=== PATIENT | male | born 1955 | race Two or more races ===

== ENCOUNTER → 2016-11-29 | Outpatient (REF) | payer OTHER ==
[~2016-11-29] MED LIST: /CELE20CA OR; ALLO15TA PO; CARD240C5 PO; DRIS50002 PO; FISH1000 OR; FLAX10005 PO; HYDR25TA6 OR; LIDO5DIS EX; LISI20TA5 OR; METO100T PO; OMEP20CA3 PO; OMEP20TA7 OR; PRAD150C PO; SIMV40TA2 OR; ULTRTA OR; VIT D 2000 OR; ZOCO40TA PO; [UNRECOGNIZED DRUG - OTHER] PO
[2016-11-29 19:18] LABS: CALCIUM OXALATE CRYSTALS SMALL
== END ==
LOC: M SMT 16:40
PROVIDERS: ATTEND Nurse Practitioner Women's Health
DX: N50.819 Testicular pain, unspecified (principal)